=== PATIENT | male | born 1975 | race Caucasian/White ===

== ENCOUNTER 2018-08-18 22:08 | Inpatient (IN) | payer OTHER, SELFPAY ==
--- NOTE | 2018-08-18 23:09 | EDPHYS ---
Physician Documentation [facility] Name: Darrell Tuttle Age: 43 yrs Sex: Male : 1975 Arrival Date: 08/18/2018 Time: 22:12 Bed 5 Private MD: ED Physician Del Rico HPI: 08/18 23:03 This 43 yrs old Male presents to ER via Ambulatory with complaints of Wound michelle Infection. Historical: - Allergies: 22:24 No Known Allergies; bb - Home Meds: 22:24 Bactrim DS 800-160 mg Oral tab [Active]; Vit D [Active]; metoprolol tartrate 25 mg Oral bb tab 1 tab 2 times per day [Active]; simvastatin 80 mg Oral tab daily [Active]; losartan 100 mg oral tab 1 tab once daily [Active]; - PMHx: 22:24 Diabetes - NIDDM; Hypertension; bb - PSHx: 22:24 nephrectomy; bb - Immunization history:: Adult Immunizations up to date. - Social history:: Smoking status: Patient uses tobacco products, smokes one pack cigarettes per day. Patient/guardian denies using alcohol, street drugs. - Ebola Screening: : No symptoms or risks identified at this time. ROS: 23:04 Constitutional: Negative for fever, chills, and weight loss, Eyes: Negative for injury, michelle pain, redness, and discharge, ENT: Negative for injury, pain, and discharge, Neck: Negative for injury, pain, and swelling, Cardiovascular: Negative for chest pain, palpitations, and edema, Respiratory: Negative for shortness of breath, cough, wheezing, and pleuritic chest pain, Abdomen/GI: Negative for abdominal pain, nausea, vomiting, diarrhea, and constipation, Back: Negative for injury and pain, : Negative for injury, bleeding, discharge, and swelling, Neuro: Negative for headache, weakness, numbness, tingling, and seizure, Psych: Negative for depression, anxiety, suicide ideation, homicidal ideation, and hallucinations, Allergy/Immunology: Negative for hives, rash, and allergies, Endocrine: Negative for neck swelling, polydipsia, polyuria, polyphagia, and marked weight changes, Hematologic/Lymphatic: Negative for swollen nodes, abnormal bleeding, and unusual bruising. 23:04 MS/extremity: Positive for pain, swelling, tenderness, warmth, of the right foot and right leg. Exam: 23:04 Constitutional: This is a well developed, well nourished patient who is awake, alert, michelle and in no acute distress. Head/Face: Normocephalic, atraumatic. Eyes: Pupils equal round and reactive to light, extra-ocular motions intact. Lids and lashes normal. Conjunctiva and sclera are non-icteric and not injected. Cornea within normal limits. Periorbital areas with no swelling, redness, or edema. ENT: Nares patent. No nasal discharge, no septal abnormalities noted. Tympanic membranes are normal and external auditory canals are clear. Oropharynx with no redness, swelling, or masses, exudates, or evidence of obstruction, uvula midline. Mucous membranes moist. Neck: Trachea midline, no thyromegaly or masses palpated, and no cervical lymphadenopathy. Supple, full range of motion without nuchal rigidity, or vertebral point tenderness. No Meningismus. Chest/axilla: Normal chest wall appearance and motion. Nontender with no deformity. No lesions are appreciated. Cardiovascular: Regular rate and rhythm with a normal S1 and S2. No gallops, murmurs, or rubs. Normal PMI, no JVD. No pulse deficits. Respiratory: Lungs have equal breath sounds bilaterally, clear to auscultation and percussion. No rales, rhonchi or wheezes noted. No increased work of breathing, no retractions or nasal flaring. Abdomen/GI: Soft, non-tender, with normal bowel sounds. No distension or tympany. No guarding or rebound. No evidence of tenderness throughout. Back: No spinal tenderness. No costovertebral tenderness. Full range of motion. Male : Normal genitalia with no discharge or lesions. Neuro: Awake and alert, GCS 15, oriented to person, place, time, and situation. Cranial nerves II-XII grossly intact. Motor strength 5/5 in all extremities. Sensory grossly intact. Cerebellar exam normal. Normal gait. Psych: Awake, alert, with orientation to person, place and time. Behavior, mood, and affect are within normal limits. 23:04 Skin: abscess, that is small, cellulitis, that is mild, induration, that is mild is noted. Vital Signs: 22:24 BP 167 / 86; Pulse 103; Resp 18 S; Temp 99.1(O); Pulse Ox 99% on R/A; Weight 90.72 kg bb (R); Height 6 ft. 0 in. (182.88 cm) (R); Pain 2/10; 08/19 01:45 BP 162 / 83; Pulse 85; Resp 18; Pulse Ox 98% on R/A; tl2 02:19 BP 133 / 77; Pulse 84; Resp 16; Temp 98.5(O); Pulse Ox 97% on R/A; Pain 0/10; tl1 08/18 22:24 Body Mass Index 27.12 (90.72 kg, 182.88 cm) Procedures: 01:36 I \T\ D: Incision and drainage was performed for an abscess of the right Prepped with [facility] Betadine, Anesthetized with nothing. Incised with sissors. Drained small amount Dressing: non-Adherent dressing, the patient tolerated the procedure well, cultures obtained. MDM: 08/18 22:42 Patient medically screened. [facility] 23:06 Data reviewed: vital signs, nurses notes, lab test result(s), EKG, radiologic studies, [facility] plain films. 08/18 23:03 Order name: Basic Metabolic Panel; Complete Time: 23:53 [facility] 08/18 23:03 Order name: CBC with Diff; Complete Time: 23:53 [facility] 08/18 23:03 Order name: LFT's; Complete Time: 23:53 [facility] 08/18 23:03 Order name: Magnesium; Complete Time: 23:53 [facility] 08/18 23:03 Order name: NT PRO-BNP; Complete Time: 23:53 [facility] 08/18 23:03 Order name: PT-INR; Complete Time: 23:53 [facility] 08/18 23:03 Order name: Troponin (emerg Dept Use Only); Complete Time: 23:53 [facility] 08/18 23:03 Order name: XRAY Chest (1 view) [facility] 08/18 23:03 Order name: Sed Rate; Complete Time: 23:53 [facility] 08/18 23:15 Order name: Blood Culture Adult (2) tl2 08/18 23:19 Order name: Wound Culture [facility] 08/19 01:40 Order name: Lactate EDMS 08/19 02:01 Order name: Wound Culture tl1 08/19 02:05 Order name: Wound Culture [facility] 08/18 23:03 Order name: EKG; Complete Time: 23:03 [facility] 08/18 23:03 Order name: Cardiac monitoring; Complete Time: 23:11 [facility] 08/18 23:03 Order name: EKG - Nurse/Tech; Complete Time: 00:12 [facility] 08/18 23:03 Order name: IV Saline Lock; Complete Time: 23:11 [facility] 08/18 23:03 Order name: Labs collected and sent; Complete Time: 23:24 [facility] 08/18 23:03 Order name: O2 Per Protocol; Complete Time: 23:24 [facility] 08/18 23:03 Order name: Foot Right 3 View XRAY [facility] 08/18 23:14 Order name: CONS Physician Consult [facility] 08/18 23:14 Order name: NPO EDFL 08/18 23:03 Order name: O2 Sat Monitoring; Complete Time: 23:24 [facility] 08/18 23:03 Order name: Wound dressing; Complete Time: 23:23 [facility] 08/18 23:59 Order name: Dressing - Wound; Complete Time: 01:41 [facility] 08/18 23:59 Order name: Gloves, Sterile; Complete Time: 01:41 [facility] 08/18 23:59 Order name: Setup Suture Tray; Complete Time: 01:41 [facility] Administered Medications: 23:23 Drug: NS 0.9% 1000 ml Route: IV; Rate: 1 bolus; Site: right forearm; tl2 23:33 Follow up: IV Status: Completed infusion tl1 23:23 Drug: Zosyn 3.375 grams Route: IVPB; Infused Over: 60 mins; Site: right forearm; tl2 08/19 01:48 Follow up: IV Status: Completed infusion tl1 00:18 Drug: Insulin Regular Human 10 units {Co-Signature: tl2 (Dorita Olea RN).} Route: IVP; tl1 Site: right forearm; 01:41 Follow up: Response: No adverse reaction; Blood sugar is lowered tl2 00:19 Drug: Insulin Regular Human 10 units {Co-Signature: tl2 (Dorita Olea RN).} Route: tl1 Sub-Q; Site: abdomen; 01:41 Follow up: Response: No adverse reaction; Blood sugar is lowered tl2 00:27 Drug: vancoMYCIN 1 grams Route: IVPB; Infused Over: 2 hrs; Site: right antecubital; tl1 01:49 Follow up: IV Status: Infusion continued upon admission tl1 02:31 Follow up: IV Status: Completed infusion tl1 00:27 Drug: NS 0.9% 1000 ml Route: IV; Rate: 125 ml/hr; Site: right forearm; tl2 01:49 Follow up: IV Status: Infusion continued upon admission tl1 01:42 Drug: Silvadene Cream 1 % 1 application Route: Topical; Site: affected area; tl2 Point of Care Testing: Blood Glucose: 01:05 Blood Glucose: 317 mg/dL; tl1 Ranges: Critical Glucose Levels:Adult <50 mg/dl or >400 mg/dl <40 mg/dl or >180 mg/dl Disposition: 08/18/18 23:09 Hospitalization ordered by Jodi Washington for Inpatient Admission. Preliminary diagnosis are Cutaneous abscess of right foot - great toe, Type 1 diabetes mellitus, Lymphangitis - ascending, Anemia, unspecified, Unspecified kidney failure. - Bed requested for Telemetry/MedSurg (Inpatient). - Status is Inpatient Admission. tl2 - Condition is Fair. - Problem is new. - Symptoms have improved. UTI on Admission? No Signatures: Dispatcher [employer] EDDel Oconnell MD MD cha Ballard, Brenda, RN RN Magalie Vallecillo ms, Tonya, RN RN tl1 Dorita Olea RN RN tl2 Dorita Olea RN tl2 Corrections: (The following items were deleted from the chart) 08/18 23:36 23:09 Hospitalization Ordered by oJdi Washington MD for Inpatient Admission. Preliminary ms diagnosis is Cutaneous abscess of right foot - great toe; Type 1 diabetes mellitus; Lymphangitis - ascending. Bed requested for Telemetry/MedSurg (Inpatient). Status is Inpatient Admission. Condition is Fair. Problem is new. Symptoms have improved. UTI on Admission? No. michelle 23:58 23:36 08/18/2018 23:09 Hospitalization Ordered by Jodi Washington MD for Inpatient michelle Admission. Preliminary diagnosis is Cutaneous abscess of right foot - great toe; Type 1 diabetes mellitus; Lymphangitis - ascending. Bed requested for Telemetry/MedSurg (Inpatient). Status is Inpatient Admission. Condition is Fair. Problem is new. Symptoms have improved. UTI on Admission? No. ms 08/19 03:17 08/18 23:58 08/18/2018 23:09 Hospitalization Ordered by Jodi Washington MD for Inpatient tl2 Admission. Preliminary diagnosis is Cutaneous abscess of right foot - great toe; Type 1 diabetes mellitus; Lymphangitis - ascending; Anemia, unspecified; Unspecified kidney failure. Bed requested for Telemetry/MedSurg (Inpatient). Status is Inpatient Admission. Condition is Fair. Problem is new. Symptoms have improved. UTI on Admission? No. michelle
--- NOTE | 2018-08-18 23:09 | ER ---
Nurse's Notes [facility] Name: Darrell Tuttle Age: 43 yrs Sex: Male : 1975 Arrival Date: 08/18/2018 Time: 22:12 Bed 5 Private MD: Diagnosis: Cutaneous abscess of right foot-great toe;Type 1 diabetes mellitus;Lymphangitis-ascending;Anemia, unspecified;Unspecified kidney failure Presentation: 08/18 22:19 Presenting complaint: Patient states: he had a diabetic wound to his right big toe for bb about a month then it heeled but 2 days ago it developed a "blood blister" and now he is having redness to foot and pain up his calf. He was started on Bactrim yesterday, pt had one kidney removed as a child for polycystic kidney. Transition of care: patient was not received from another setting of care. Onset of symptoms was August 16, 2018. Risk Assessment: Do you want to hurt yourself or someone else? Patient reports no desire to harm self or others. Initial Sepsis Screen: Does the patient meet any 2 criteria? No. Patient's initial sepsis screen is negative. Does the patient have a suspected source of infection? No. Patient's initial sepsis screen is negative. Care prior to arrival: None. 22:19 Method Of Arrival: Ambulatory bb 22:19 Acuity: SOFI 3 bb Historical: - Allergies: 22:24 No Known Allergies; bb - Home Meds: 22:24 Bactrim DS 800-160 mg Oral tab [Active]; Vit D [Active]; metoprolol tartrate 25 mg Oral bb tab 1 tab 2 times per day [Active]; simvastatin 80 mg Oral tab daily [Active]; losartan 100 mg oral tab 1 tab once daily [Active]; - PMHx: 22:24 Diabetes - NIDDM; Hypertension; bb - PSHx: 22:24 nephrectomy; bb - Immunization history:: Adult Immunizations up to date. - Social history:: Smoking status: Patient uses tobacco products, smokes one pack cigarettes per day. Patient/guardian denies using alcohol, street drugs. - Ebola Screening: : No symptoms or risks identified at this time. Screenin:02 Abuse screen: Denies threats or abuse. Nutritional screening: No deficits noted. tl2 Tuberculosis screening: No symptoms or risk factors identified. Fall Risk None identified. Assessment: 23:00 General: Appears in no apparent distress. uncomfortable, Behavior is calm, cooperative, tl2 appropriate for age. Pain: Complains of pain in right first toe and Right first toenail Pain does not radiate. Pain currently is 10 out of 10 on a pain scale. Neuro: Level of Consciousness is awake, alert, obeys commands, Oriented to person, place, time, situation. Cardiovascular: Denies chest pain. Respiratory: Airway is patent Respiratory effort is even, unlabored, Respiratory pattern is regular, symmetrical. GI: No signs and/or symptoms were reported involving the gastrointestinal system. Derm: Wound noted right first toe and Right first toenail Wound is red, swollen, foul odor. 08/19 00:00 Reassessment: Patient appears in no apparent distress at this time. Patient and/or tl2 family updated on plan of care and expected duration. Pain level reassessed. Patient is alert, oriented x 3, equal unlabored respirations, skin warm/dry/pink. 01:30 Reassessment: Patient appears in no apparent distress at this time. Patient and/or tl2 family updated on plan of care and expected duration. Pain level reassessed. Patient is alert, oriented x 3, equal unlabored respirations, skin warm/dry/pink. 03:00 Reassessment: Patient appears in no apparent distress at this time. Patient and/or tl2 family updated on plan of care and expected duration. Pain level reassessed. Patient is alert, oriented x 3, equal unlabored respirations, skin warm/dry/pink. Vital Signs: 08/18 22:24 BP 167 / 86; Pulse 103; Resp 18 S; Temp 99.1(O); Pulse Ox 99% on R/A; Weight 90.72 kg bb (R); Height 6 ft. 0 in. (182.88 cm) (R); Pain 2/10; 08/19 01:45 BP 162 / 83; Pulse 85; Resp 18; Pulse Ox 98% on R/A; tl2 02:19 BP 133 / 77; Pulse 84; Resp 16; Temp 98.5(O); Pulse Ox 97% on R/A; Pain 0/10; tl1 08/18 22:24 Body Mass Index 27.12 (90.72 kg, 182.88 cm) ED Course: 08/18 22:12 Patient arrived in ED. do 22:22 Triage completed. bb 22:24 Arm band placed on Patient placed in an exam room, on a stretcher, on pulse oximetry. bb Family accompanied patient. 22:41 Del Rico MD is Attending Physician. michelle 23:01 Inserted saline lock: 20 gauge in right forearm, using aseptic technique. Blood tl2 collected. placed by yahaira De La Garza. 23:02 Patient has correct armband on for positive identification. Bed in low position. Call tl2 light in reach. Side rails up X 1. Adult w/ patient. 23:07 Jodi Washington MD is Hospitalizing Provider. michelle 23:22 X-ray completed. Portable x-ray completed in exam room. Patient tolerated procedure kw well. 23:23 XRAY Chest (1 view) In Process Unspecified. EDMS 23:24 Foot Right 3 View XRAY In Process Unspecified. EDMS 08/19 00:18 Deepika Rodarte RN is Primary Nurse. tl1 01:42 No provider procedures requiring assistance completed. Patient admitted, IV remains in tl1 place. Dressings: Adaptic Kerlix 4X4s X 1; right first toe. Administered Medications: 08/18 23:23 Drug: NS 0.9% 1000 ml Route: IV; Rate: 1 bolus; Site: right forearm; tl2 23:33 Follow up: IV Status: Completed infusion tl1 23:23 Drug: Zosyn 3.375 grams Route: IVPB; Infused Over: 60 mins; Site: right forearm; tl2 08/19 01:48 Follow up: IV Status: Completed infusion tl1 00:18 Drug: Insulin Regular Human 10 units {Co-Signature: tl2 (Dorita Olea RN).} Route: IVP; tl1 Site: right forearm; 01:41 Follow up: Response: No adverse reaction; Blood sugar is lowered tl2 00:19 Drug: Insulin Regular Human 10 units {Co-Signature: tl2 (Dorita Olea RN).} Route: tl1 Sub-Q; Site: abdomen; 01:41 Follow up: Response: No adverse reaction; Blood sugar is lowered tl2 00:27 Drug: vancoMYCIN 1 grams Route: IVPB; Infused Over: 2 hrs; Site: right antecubital; tl1 01:49 Follow up: IV Status: Infusion continued upon admission tl1 02:31 Follow up: IV Status: Completed infusion tl1 00:27 Drug: NS 0.9% 1000 ml Route: IV; Rate: 125 ml/hr; Site: right forearm; tl2 01:49 Follow up: IV Status: Infusion continued upon admission tl1 01:42 Drug: Silvadene Cream 1 % 1 application Route: Topical; Site: affected area; tl2 Point of Care Testing: Blood Glucose: 01:05 Blood Glucose: 317 mg/dL; tl1 Ranges: Outcome: 08/18 23:09 Decision to Hospitalize by Provider. michelle 08/19 03:00 Admitted to Med/surg family with patient, via stretcher, room 224, with chart, Report tl2 called to BREANA Lima Condition: stable Discharge instructions given to patient, family, Instructed on the need for admit. 03:17 Patient left the ED. tl2 Signatures: Dispatcher [employer] EDDel Oconnell MD MD cha Ballard, Brenda, RN RN Sabine Dorantes Tonya, RN RN tl1 Nona Valderrama Taylor, RN RN tl2 Dorita Olea RN tl2 Corrections: (The following items were deleted from the chart) 08/18 23:16 23:01 Inserted saline lock: 22 gauge in right forearm, using aseptic technique. Blood tl2 collected. placed by yahaira De La Garza tl2 08/19 01:48 08/18 23:03 vancoMYCIN 1 grams IVPB in right antecubital over 2 hrs tl1 tl1
[2018-08-18] MEDS ORDERED: NA CHLORIDE 0.9% 1,000 ML ONE (23:20)
[2018-08-18] MEDS ORDERED: VANCOMYCIN 1 GM/250 ML BAG ONE (23:20)
[2018-08-18] MEDS ORDERED: PIPER/TAZO/NS 3.375gm 3.375 GM/100 ML BAG ONE (23:21)
[2018-08-18 23:22] LABS: Absolute Lymphocytes (CBC) 2.1 K/uL (0.7-4.9); Absolute Monocytes 0.7 K/uL (0.1-1.3); Absolute Neutrophil 10.1 K/uL (1.8-8.0); Basophils % 0.9 % (0-1.3); Eosinophils % 4.1 % (0-4.4); Hematocrit 33.6 % (39.6-49.0); Lymphocytes % 15.4 % (15.3-44.8); MCH 33.7 pg (27.0-35.0); MCV 91.4 fL (80-100); MPV 8.4 fL (7.6-11.3); Monocytes % 5.3 % (3.3-12.3); RBC Red Blood Cell Count 3.67 M/uL (4.33-5.43)
[2018-08-18 23:31] LABS: Protime INR 1.11
[2018-08-18 23:49] LABS: ALT/SGPT 17 U/L (12-78); AST/SGOT 15 U/L (15-37); Albumin 3.1 g/dL (3.4-5.0); Alkaline Phosphatase 110 U/L (45-117); BUN Blood Urea Nitrogen 37 mg/dL (7-18); Bicarbonate 22 mmol/L (21-32); Bilirubin Direct 0.2 mg/dL (0-0.2); Bilirubin Total 0.9 mg/dL (0.2-1.0); Magnesium 1.9 mg/dL (1.8-2.4); NT PRO-BNP 307 pg/mL (<125); Potassium 4.2 mmol/L (3.5-5.1); Protein, Total 7.5 g/dL (6.4-8.2); Sodium Level 132 mmol/L (136-145); Troponin (Emerg Dept Use Only) < 0.02 ng/mL (0.0-0.045)
[2018-08-18 23:50] LABS: Glucose Level 460 mg/dL (74-106)
--- NOTE | 2018-08-19 00:21 | P.HP ---
Certification for Inpatient Patient admitted to: Inpatient With expected LOS: >2 Midnights Practitioner: I am a practitioner with admitting privileges, knowledge of patient current condition, hospital course, and medical plan of care. Services: Services provided to patient in accordance with Admission requirements found in Title 42 Section 412.3 of the Code of Federal Regulations Patient History Date of Service: 08/19/18 Reason for admission: Diabetic wound History of Present Illness: Mr Tuttle is a 43-year-old male with history of insulin-dependent diabetic mellitus, hypertension, unilateral nephrectomy due to polycystic disease, with chronic diabetic wound in his right toe currently healed came complaining of increasing swelling, pain, redness and bloody blister in the anterior aspect of his 1st right toe. He denied any fever or chills. The patient states that the wound has been getting worse pretty fast. Lab work remarkable for leukocytosis 13.6 K, elevated ESR, worsening renal function and hyperglycemia. Lactate level is pending. X-ray of right foot done, awaiting radiology report. Allergies No Known Allergies Allergy (Verified 01/19/18 15:03) Home medications list reviewed: Yes - Past Medical/Surgical History -: IDDM -: Hypertension -: Tobacco abuse -: Nephrectomy - Family History Family History: Reviewed- Non-Contributory - Social History Smoking Status: Current every day smoker Counseled patient to stop smoking for: less than 10 minutes Smoking therapy provided: Yes Patient receptive to therapy: No Alcohol use: Yes CD- Drugs: No Place of Residence: Home Review of Systems 10-point ROS is otherwise unremarkable Physical Examination - Physical Exam General: Alert, In no apparent distress HEENT: Atraumatic, PERRLA, Mucous membr. moist/pink, EOMI, Sclerae nonicteric Neck: Supple, 2+ carotid pulse no bruit, No LAD, Without JVD or thyroid abnormality Respiratory: Clear to auscultation bilaterally, Normal air movement Cardiovascular: Regular rate/rhythm, Normal S1 S2 Gastrointestinal: Normal bowel sounds, No tenderness Musculoskeletal: No tenderness Integumentary: No rashes, Tenderness/swelling, Erythema, Warmth, Diabetic ulcer Neurological: Normal speech, Normal strength at 5/5 x4 extr, Normal tone, Normal affect Lymphatics: No axilla or inguinal lymphadenopathy - Studies Laboratory Data (last 24 hrs) 08/18/18 22:39: PT 13.1 H, INR 1.11 08/18/18 22:39: WBC 13.6 H, Hgb 12.4 L, Hct 33.6 L, Plt Count 224 08/18/18 22:39: Sodium 132 L, Potassium 4.2, BUN 37 H, Creatinine 2.80 H, Glucose 460 H*, Magnesium 1.9, Total Bilirubin 0.9, AST 15, ALT 17, Alkaline Phosphatase 110 Assessment and Plan - Problems (Diagnosis) (1) Diabetes mellitus Current Visit: Yes Status: Acute Qualifiers: Diabetes mellitus type: type 2 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: with termite treater helper use Diabetes mellitus complication status: with skin complications Diabetes mellitus complication detail: with foot ulcer Qualified Code(s): E11.621 - Type 2 diabetes mellitus with foot ulcer; L97.509 - Non-pressure chronic ulcer of other part of unspecified foot with unspecified severity; Z79.4 - penitentiary (current) use of insulin (2) Diabetic wound Current Visit: Yes Status: Acute (3) Hypertension Current Visit: Yes Status: Acute Qualifiers: Hypertension type: essential hypertension Qualified Code(s): I10 - Essential (primary) hypertension (4) Tobacco abuse Current Visit: Yes Status: Acute (5) Acute on chronic renal failure Current Visit: Yes Status: Acute Qualifiers: Acute renal failure type: unspecified Chronic kidney disease stage: unspecified stage Qualified Code(s): N17.9 - Acute kidney failure, unspecified ; N18.9 - Chronic kidney disease, unspecified - Plan The patient will be admitted to the hospital due to a diabetic ulcer, will start empiric antibiotics, was keep NPO consult surgery team for evaluation recommendation. - Advance Directives Does patient have a Living Will: No Does patient have a Durable POA for Healthcare: No - Code Status/Comfort Care Code Status Assessed: Yes Code Status: Full Code
[2018-08-19] MEDS ORDERED: INSULIN -REGULAR HUMAN 50 UNIT/0.5 ML ML ONE (00:22)
[2018-08-19] MEDS ORDERED: SILVER SULFADIAZINE 1% 25 GM TOP ONE (00:23)
[2018-08-19] MEDS ORDERED: NA CHLORIDE 0.9% 1,000 ML ONE (00:29)
[2018-08-19] MEDS ORDERED: ONDANSETRON 4 MG/2 ML VIAL IV PRN (02:04)
[2018-08-19] MEDS: NA CHLORIDE 0.9% 1,000 ML IV SCH ×4 (02:04→14:00)
[2018-08-19] MEDS ORDERED: ACETAMINOPHEN 500 MG TAB PO PRN (02:04)
[2018-08-19] MEDS ORDERED: VANCOMYCIN 1.75 GM in NA CHLORIDE 0.9% 500 ML IVPB SCH (03:00)
[2018-08-19] MEDS ORDERED: PIPERACIL/TAZO 3.375 GM VIAL IV ONE (05:32)
[2018-08-19] MEDS ORDERED: NA CHLORIDE 0.9% 100 ML ONE (05:35)
[2018-08-19] MEDS: INSULIN -REGULAR HUMAN 50 UNIT/0.5 ML ML SQ SCH ×4 (05:56→21:04)
[2018-08-19] MEDS ORDERED: VANCOMYCIN 0.75 GM in NA CHLORIDE 0.9% 250 ML IV ONE (06:00)
[2018-08-19] MEDS ORDERED: PIPER/TAZO/NS 3.375gm 3.375 GM/100 ML BAG IVPB SCH (06:00)
[2018-08-19 06:20] LABS: Absolute Lymphocytes (CBC) 2.5 K/uL (0.7-4.9); Absolute Monocytes 0.8 K/uL (0.1-1.3); Absolute Neutrophil 7.5 K/uL (1.8-8.0); Basophils % 0.5 % (0-1.3); Eosinophils % 5.4 % (0-4.4); Hematocrit 30.4 % (39.6-49.0); Lymphocytes % 21.8 % (15.3-44.8); MCH 31.7 pg (27.0-35.0); MCV 89.6 fL (80-100); Monocytes % 6.9 % (3.3-12.3); RBC Red Blood Cell Count 3.39 M/uL (4.33-5.43)
[2018-08-19 06:30] LABS: Potassium 4.2 mmol/L (3.5-5.1)
[2018-08-19] MEDS ORDERED: VANCOMYCIN 1 GM/250 ML BAG ONE (06:34)
[2018-08-19] MEDS ORDERED: HYDRALAZINE HCL 20 MG/ML VIAL IV PRN (06:37)
[2018-08-19 07:21] LABS: Ferritin 358.9 ng/mL (26-388)
[2018-08-19] MEDS ORDERED: INFLUENZA VACCINE (for 3y+) 0.5 ML DOSE IMVAC ONE (08:00)
--- NOTE | 2018-08-19 08:16 | RAD REPORT ---
EXAM DESCRIPTION: Gaetano Single View08/18/2018 11:27 pm CLINICAL HISTORY: Cough COMPARISON: none FINDINGS: The lungs appear clear of acute infiltrate. The heart is normal size IMPRESSION: No acute abnormalities displayed
--- NOTE | 2018-08-19 08:24 | RAD REPORT ---
EXAM DESCRIPTION: RAD - Foot Right 3 View - 08/18/2018 11:26 pm CLINICAL HISTORY: Right foot pain and swelling FINDINGS: Ulceration involves the soft tissues of first distal phalanx. Air within the soft tissues likely indicate infection. Destructive bony lesion is not seen. No fracture or dislocation is noted
[2018-08-19] MEDS: PIPER/TAZO/NS 3.375gm 3.375 GM/100 ML BAG IVPB SCH ×2 (09:39→17:30)
--- NOTE | 2018-08-19 13:55 | P.CNS ---
Date of Consult: 08/19/18 PC: This patient presents emergency room with severe pain in his right toe for diagnosis and treatment. HPC: Patient was at work. When he got home he noticed his right toe was swollen. On the bottom part there was a area of blistering ran it color change. Also has some redness on the dorsum of the foot. PMH: Previous episode of abscess in this right great toe. He had an open wound to this area which gradually close. 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 This wound, has come up the the last few days. History diabetes, polycystic kidney disease PSHx: Previous incision drainage SOC: No known allergy SYS REVIEW: Says he is otherwise healthy male. No cough, wheeze, shortness of breath. Denies any chest pain or palpitations. However has no sensation in his feet from about mid calf down O/E awake alert stable HEENT: Within normal limit Chest: Chest movement equal bilaterally ABD: Soft LOCO: On inspection of this patient's right great toe when concede that the medial aspect on the plantar surface shows a black area. This is also over an area of possible hematoma. Medially and the skin is intact from the wound. DATA: Within normal an IMPRESSION: Necrotic area on the right great toe. Open and draining at the moment. PLAN: The patient is an antibiotics, he had apparently lymphangitis when seen by the physician's left side on the dorsum of the foot. This is no longer there. I will continue with the antibiotics observe this foot over the next 12: 48 p.m.. We may be able to avoid an aggressive debridement. Will see how it progresses over the next few days.
--- NOTE | 2018-08-19 16:48 | P.PN ---
Subjective Date of Service: 08/19/18 Primary Care Provider: Keyur Bonilla NP Chief Complaint: Diabetic wound Subjective: Doing well Physical Examination - Vital Signs Temperature: 97.4 F Blood Pressure: 120/65 Pulse: 72 Respirations: 17 Pulse Ox (%): 97 - Physical Exam General: Alert, In no apparent distress, Oriented x3, Cooperative HEENT: Atraumatic Neck: Supple Respiratory: Clear to auscultation bilaterally, Normal air movement Cardiovascular: Normal pulses, Regular rate/rhythm Gastrointestinal: Normal bowel sounds, Soft and benign, Non-distended, No tenderness, No masses, No rebound, No guarding Musculoskeletal: No erythema, No tenderness, No warmth Integumentary: Other (Necrotic ulcer to the right toe. Foul odor noted. Swelling to the right foot compared to the left) Neurological: Normal speech, Normal strength at 5/5 x4 extr, Normal tone, Normal affect - Studies Laboratory Data (last 24 hrs) 08/18/18 22:39: PT 13.1 H, INR 1.11 08/18/18 22:39: WBC 13.6 H, Hgb 12.4 L, Hct 33.6 L, Plt Count 224 08/18/18 22:39: Sodium 132 L, Potassium 4.2, BUN 37 H, Creatinine 2.80 H, Glucose 460 H*, Magnesium 1.9, Total Bilirubin 0.9, AST 15, ALT 17, Alkaline Phosphatase 110 Medications List Reviewed: Yes Assessment & Plan Discharge Plan: Home Plan to discharge in: Greater than 2 days Physician Review Additional Text: Impression: Diabetic foot ulcer with necrotic changes with cellulitis Diabetes mellitus type 2 uncontrolled Acute on chronic renal disease with history of right nephrectomy due to polycystic kidney disease Hypertension Anemia with iron and B12 deficiency Tobacco abuse GERD Hyperlipidemia Plan: Diabetic foot ulcer with necrotic changes with cellulitis: Continue with IV antibiotic therapy. X-ray shows no osteomyelitis. Case discussed with surgery. Will continue with IV antibiotic therapy-vancomycin and Zosyn. Pharmacy to adjust. No need for debridement at this time. Patient may require debridement. Will continue to monitor closely. Diabetes mellitus type 2 uncontrolled: Will start basal insulin. A1c 9.1. Will try to get diabetes better controlled. Acute on chronic renal disease with history of right nephrectomy due to polycystic kidney disease: Will start IV fluids. Will consult Nephrology to further monitor and address. Hypertension: Will continue with blood pressure medication. We will hold losartan due to acute on chronic renal disease. Will continue with metoprolol. Anemia with iron and B12 deficiency: Will start iron and B12 supplementation. Will monitor closely. Tobacco abuse: Will provide nicotine patch. Cessation education addressed. Hyperlipidemia: Will continue with medication. GERD: Will continue with medication Time Spent Managing Pts Care (In Minutes): 55
[2018-08-19] MEDS ORDERED: GLUCAGON 1 MG/VIAL IM PRN (16:49)
[2018-08-19] MEDS ORDERED: TRAMADOL HCL 50 MG TAB PO PRN (16:49)
[2018-08-19] MEDS ORDERED: D50W 25 GM/50 ML SYRINGE IV PRN (16:49)
[2018-08-19] MEDS ORDERED: HYDROCODONE/APAP 7.5/325 MG TAB PO PRN (16:49)
[2018-08-19] MEDS: ENOXAPARIN 30 MG/0.3 ML SQ SCH (17:30)
[2018-08-19] MEDS ORDERED: HOME MED 1 EA UNK (Simvastatin [Simvastatin] 80 MG) PO SCH (21:00)
[2018-08-19] MEDS ORDERED: INSULIN GLARGINE 100 UNITS/ML SQ SCH (21:00)
[2018-08-19] MEDS: ATORVASTATIN 40 MG TAB PO SCH (21:03)
[2018-08-19] MEDS: METOPROLOL TAR 25 MG TAB PO SCH (21:03)
[2018-08-20] MEDS: PIPER/TAZO/NS 3.375gm 3.375 GM/100 ML BAG IVPB SCH ×3 (00:12→16:53)
[2018-08-20] MEDS: NA CHLORIDE 0.9% 1,000 ML IV SCH (02:35)
[2018-08-20 04:42] LABS: Absolute Lymphocytes (CBC) 2.3 K/uL (0.7-4.9); Absolute Monocytes 0.7 K/uL (0.1-1.3); Absolute Neutrophil 6.6 K/uL (1.8-8.0); Basophils % 0.5 % (0-1.3); Eosinophils % 6.2 % (0-4.4); Hematocrit 30.5 % (39.6-49.0); Lymphocytes % 22.6 % (15.3-44.8); MCH 32.1 pg (27.0-35.0); MCV 90.4 fL (80-100); MPV 7.6 fL (7.6-11.3); Monocytes % 6.5 % (3.3-12.3); RBC Red Blood Cell Count 3.37 M/uL (4.33-5.43)
[2018-08-20 04:59] LABS: Magnesium 2.2 mg/dL (1.8-2.4); Potassium 4.6 mmol/L (3.5-5.1)
[2018-08-20] MEDS: VANCOMYCIN 1.75 GM in NA CHLORIDE 0.9% 500 ML IVPB SCH (05:24)
[2018-08-20] MEDS: PANTOPRAZOLE 40MG TABLET PO SCH (05:39)
--- NOTE | 2018-08-20 07:54 | EKG ---
Test Date: 2018-08-18 Test Time: 23:46:27 Deck Hand: ADONAY MEASUREMENT RESULTS: Intervals: Rate: 89 MA: 174 QRSD: 94 QT: 354 QTc: 430 [place]: P: 62 MA: 174 QRS: 12 T: 57 INTERPRETIVE STATEMENTS: Normal sinus rhythm Normal ECG No previous ECG available for comparison Electronically Signed On 08-20-18 07:49:13 CDT by Filpie Childers
[2018-08-20] MEDS: INSULIN -REGULAR HUMAN 50 UNIT/0.5 ML ML SQ SCH ×4 (08:36→20:55)
[2018-08-20] MEDS: METOPROLOL TAR 25 MG TAB PO SCH ×2 (08:37→20:53)
[2018-08-20] MEDS: CYANOCOBALAMIN 1,000 MCG TAB PO SCH (08:38)
[2018-08-20] MEDS: FERROUS SULFATE 325 MG TAB PO SCH (08:38)
--- NOTE | 2018-08-20 09:37 | P.CNS ---
Date of Consult: 08/19/18 Reason for Consult: SELAM/ CKD Requesting Physician: Alejandro Moe Primary Care Provider: Keyur Bonilla NP Chief Complaint: Diabetic wound History of Present Illness: 43 yo WM CKD, DM presented to the ER with several days of moderate, progressive right great toe pain and swelling with associated malaise in the setting of PAD. No modifying fx. No NSAIDs. No bladder difficulties. Mr Tuttle is a 43-year-old male with history of insulin-dependent diabetic mellitus, hypertension, unilateral nephrectomy due to polycystic disease, with chronic diabetic wound in his right toe currently healed came complaining of increasing swelling, pain, redness and bloody blister in the anterior aspect of his 1st right toe. He denied any fever or chills. The patient states that the wound has been getting worse pretty fast. Lab work remarkable for leukocytosis 13.6 K, elevated ESR, worsening renal function and hyperglycemia. Lactate level is pending. X-ray of right foot done, awaiting radiology report. Allergies No Known Allergies Allergy (Verified 01/19/18 15:03) Home medications list reviewed: Yes Home Medications: Losartan Potassium 25 mg PO DAILY 08/19/18 Metoprolol Tartrate 25 mg PO BID 08/19/18 Simvastatin 80 mg PO BEDTIME 08/19/18 - Past Medical/Surgical History Diabetic: Yes -: IDDM -: Hypertension -: Tobacco abuse -: Nephrectomy - Family History Father History Unknown: Yes - Social History Smoking Status: Current every day smoker Alcohol use: No CD- Drugs: No Caffeine use: No Place of Residence: Home Review of Systems 10-point ROS is otherwise unremarkable General: Weakness, Malaise Gastrointestinal: Constipation Musculoskeletal: Foot Pain Physical Examination Temp Pulse Resp BP Pulse Ox 98 F 77 18 131/70 98 08/20/18 07:47 08/20/18 08:37 08/20/18 07:47 08/20/18 08:37 08/20/18 07:47 General: Alert, Oriented x3, Cooperative HEENT: Atraumatic Neck: Supple Respiratory: Clear to auscultation bilaterally Cardiovascular: No edema, Regular rate/rhythm Gastrointestinal: Hypoactive, Soft and benign Musculoskeletal: No clubbing, No contractures Integumentary: No rashes, No cyanosis, Skin breakdown, Tenderness/swelling, Erythema Neurological: Normal speech Creatinine 2.8 at admission. Blood work reviewed in the chart. Imagings Data: EXAM DESCRIPTION: Gaetano Single View08/18/2018 11:27 pm CLINICAL HISTORY: Cough COMPARISON: none FINDINGS: The lungs appear clear of acute infiltrate. The heart is normal size IMPRESSION: No acute abnormalities displayed Conclusions/Impression: A/ SELAM likely due to hypovolemia. CKD IV with proteinuria. Right nephrectomy. Hyponatremia. DM II with CKD. HTN with CKD. Iron Deficiency Anemia. Hypocalcemia. P/ Continue current POC and medications. Agree with IVF. Agree with abx. Follow up with surgery for wound care. No NSAIDs. AM labs. Daily weight. Thank you kindly for the consultation.
--- NOTE | 2018-08-20 09:43 | P.PN ---
Subjective Date of Service: 08/20/18 Primary Care Provider: Keyur Bonilla NP Chief Complaint: Diabetic wound Subjective: Improving (Patient feels better. Pain to the right foot improved. Swelling and erythema noted but improved) Physical Examination - Vital Signs Temperature: 98 F Blood Pressure: 131/70 Pulse: 77 Respirations: 18 Pulse Ox (%): 98 - Physical Exam General: Alert, In no apparent distress, Oriented x3, Cooperative HEENT: Atraumatic Neck: Supple Respiratory: Clear to auscultation bilaterally, Normal air movement Cardiovascular: Normal pulses, Regular rate/rhythm Gastrointestinal: Normal bowel sounds, Soft and benign, Non-distended, No tenderness, No masses, No rebound, No guarding Integumentary: Other (Swelling, erythema noted to the right great toe and foot improved. Mainly localized to the right great toe. Necrotic ulcer noted. Foul odor improved.) Neurological: Normal speech, Normal strength at 5/5 x4 extr, Normal tone, Normal affect - Studies Medications List Reviewed: Yes Assessment & Plan Discharge Plan: Home Plan to discharge in: Greater than 2 days Physician Review Additional Text: Impression: Diabetic foot ulcer with necrotic changes with cellulitis to the right great toe and foot Diabetes mellitus type 2 uncontrolled, A1c 9.0 Acute on chronic renal disease with history of right nephrectomy due to polycystic kidney disease Hypertension Anemia with iron and B12 deficiency Tobacco abuse GERD Hyperlipidemia Plan: Diabetic foot ulcer with necrotic changes with cellulitis to the right great toe and foot: Continue with IV antibiotic therapy-vancomycin and Zosyn. Pharmacy to continue to adjust. X-ray shows no osteomyelitis. Overall improved. Case discussed with surgery. No debridement needed at this time. Patient may require debridement in the next couple of days. Will continue to monitor closely with surgery. Await wound and blood cultures. Will consider MRI of foot if no significant change. Diabetes mellitus type 2 uncontrolled: Will increase Lantus to 15 units daily. Will continue to monitor and adjust. A1c 9.0. Acute on chronic renal disease with history of right nephrectomy due to polycystic kidney disease: Continue with IV fluids. Nephrology consulted to further assess. Hypertension: Will continue with blood pressure medication-metoprolol. Losartan currently on hold due to renal disease. Anemia with iron and B12 deficiency: Will continue with iron and B12 supplementation. Will monitor closely. Tobacco abuse: Will provide nicotine patch. Cessation education addressed. Hyperlipidemia: Will continue with medication. GERD: Will continue with medication Time Spent Managing Pts Care (In Minutes): 55
[2018-08-20] MEDS ORDERED: GABAPENTIN 100 MG CAP PO PRN (09:44)
--- NOTE | 2018-08-20 09:45 | P.PN ---
Date of Service: 08/20/18 Vital Signs Temp Pulse Resp BP Pulse Ox 98 F 77 18 131/70 98 08/20/18 09:43 08/20/18 09:43 08/20/18 09:43 08/20/18 09:43 08/20/18 09:43 Medications Acetaminophen (Tylenol -Extra Strength) 500 mg PO Q4HP PRN PRN Reason: [id number] Stop: 09/18/18 02:05 Hydrocodone Bitart/Acetaminophen ([place] 7.5/325 Mg) 1 tab PO Q6H PRN PRN Reason: PAIN MODERATE TO SEVERE Stop: 09/18/18 16:50 Atorvastatin Calcium (Lipitor) 40 mg PO BEDTIME [place] Stop: 09/18/18 21:01 Last Admin: 08/19/18 21:03 Dose: 40 mg Cyanocobalamin (Vitamin B-12) 1,000 mcg PO DAILY [place] Stop: 09/19/18 09:01 Last Admin: 08/20/18 08:38 Dose: 1,000 mcg Dextrose (Dextrose 50% Syringe) 12.5 gm IV PRN PRN; Protocol PRN Reason: HYPOGLYCEMIA Stop: 09/18/18 16:50 Enoxaparin Sodium (Lovenox 30 Mg Inj) 30 mg SQ DAILY 5 PM [place] Stop: 09/18/18 17:01 Last Admin: 08/19/18 17:30 Dose: 30 mg Ferrous Sulfate (Feosol) 325 mg PO DAILY [place] Stop: 09/19/18 09:01 Last Admin: 08/20/18 08:38 Dose: 325 mg Glucagon (Glucagen) 1 mg IM 1X PRN; Protocol PRN Reason: HYPOGLYCEMIA Stop: 09/18/18 16:50 Hydralazine HCl (Apresoline) 10 mg IV Q6HP PRN PRN Reason: HIGH BP Stop: 09/18/18 06:38 Vancomycin HCl 1.75 gm/ Sodium (Chloride) 500 mls @ 250 mls/hr IVPB Q24H [place]; Protocol Stop: 09/19/18 06:01 Last Admin: 08/20/18 05:24 Dose: 500 mls Piperacillin Sod/Tazobactam Sod (Zosyn 3.375 Gm/100 Ml Ns Ivpb) 3.375 gm in 100 mls @ 25 mls/hr IVPB Q8HR [place]; Protocol Stop: 09/18/18 09:01 Last Admin: 08/20/18 08:37 Dose: 100 mls Sodium Chloride (Sodium Chloride 0.45%) 1,000 mls @ 75 mls/hr IV .[id number] [facility] Stop: 08/21/18 12:39 Insulin Glargine (Lantus) 15 units SQ BEDTIME [place] Stop: 09/19/18 21:01 Insulin Human Regular (Novolin -R) 0 unit SQ ACHS [facility]; Protocol Stop: 09/18/18 16:31 Last Admin: 08/20/18 08:36 Dose: 2 unit Metoprolol Tartrate (Lopressor) 25 mg PO BID [facility] Stop: 09/18/18 21:01 Last Admin: 08/20/18 08:37 Dose: 25 mg Ondansetron HCl (Zofran) 4 mg IV Q6HP PRN PRN Reason: NAUSEA / VOMITING Stop: 09/18/18 02:05 Pantoprazole Sodium (Protonix Tab) 40 mg PO DAILYAC [facility] Stop: 09/19/18 06:31 Last Admin: 08/20/18 05:39 Dose: 40 mg Sodium Chloride (Normal Saline Flush) 10 ml IV BID [facility] Stop: 09/18/18 09:01 Last Admin: 08/20/18 08:38 Dose: Not Given Tramadol HCl (Ultram) 50 mg PO TID PRN PRN Reason: PAIN MILD Stop: 09/18/18 16:50 Microbiology Results 08/18/18 22:39 Blood - Blood Aerobic Blood Culture - Preliminary No growth in 24 hours. 08/18/18 22:39 Blood - Blood Anaerobic Blood Culture - Preliminary No growth in 24 hours. 08/18/18 23:05 Blood - Blood Aerobic Blood Culture - Preliminary No growth in 24 hours. 08/18/18 23:05 Blood - Blood Anaerobic Blood Culture - Preliminary No growth in 24 hours. Assessment/ Plan: Nephrology. Feeling better today. CPS stable without CP or SOB. No acute events overnight. Feeling like a BM is coming. Vitals, medications, blood work and imaging reviewed in the chart. General: Alert, Oriented x3, Cooperative HEENT: Atraumatic Neck: Supple Respiratory: Clear to auscultation bilaterally Cardiovascular: No edema, Regular rate/rhythm Gastrointestinal: Hypoactive, Soft and benign Musculoskeletal: No clubbing, No contractures Integumentary: No rashes, No cyanosis, Skin breakdown, Tenderness/swelling, Erythema Neurological: Normal speech Creatinine 2.8 at admission. Blood work reviewed in the chart. Imagings Data: EXAM DESCRIPTION: Gaetano Single View08/18/2018 11:27 pm CLINICAL HISTORY: Cough COMPARISON: none FINDINGS: The lungs appear clear of acute infiltrate. The heart is normal size IMPRESSION: No acute abnormalities displayed Conclusions/Impression: A/ SELAM likely due to hypovolemia. CKD IV with proteinuria. Right nephrectomy. Hyponatremia. DM II with CKD. HTN with CKD. Iron Deficiency Anemia. B12 Deficiency. Hypocalcemia. P/ Continue current POC and medications. Agree with IVF. Agree with abx. Follow up with surgery for wound care. No NSAIDs. AM labs. Daily weight.
[2018-08-20] MEDS: NACHLORIDE 0.45% 1,000 ML IV SCH ×2 (10:00→23:18)
[2018-08-20 11:20] LABS: Urine Appearance CLEAR; Urine Bilirubin NEGATIVE (NEG); Urine Blood 2+ (NEG); Urine Color YELLOW; Urine Glucose 3+ (NEG); Urine Protein 2+ (NEG); Urine pH 5.5 (5.0-7.0)
[2018-08-20 11:37] LABS: Urine Bacteria <20 /HPF (NONE SEEN); Urine Culture Reflex Order NOT NEEDED
[2018-08-20 12:59] LABS: UR CREAT 95.7 mg/dL (20-370); UR MICROALBUMIN 45.9 mg/dL (< 1.9)
[2018-08-20] MEDS: ENOXAPARIN 30 MG/0.3 ML SQ SCH (16:54)
[2018-08-20] MEDS: ATORVASTATIN 40 MG TAB PO SCH (20:54)
[2018-08-20] MEDS ORDERED: INSULIN GLARGINE 100 UNITS/ML SQ SCH (21:00)
[2018-08-21] MEDS: PIPER/TAZO/NS 3.375gm 3.375 GM/100 ML BAG IVPB SCH ×3 (00:11→17:19)
[2018-08-21 04:37] LABS: Absolute Lymphocytes (CBC) 2.3 K/uL (0.7-4.9); Absolute Monocytes 0.7 K/uL (0.1-1.3); Absolute Neutrophil 5.6 K/uL (1.8-8.0); Basophils % 0.6 % (0-1.3); Eosinophils % 6.9 % (0-4.4); Hematocrit 27.6 % (39.6-49.0); Lymphocytes % 24.8 % (15.3-44.8); MCH 32.6 pg (27.0-35.0); MCV 90.1 fL (80-100); MPV 7.7 fL (7.6-11.3); Monocytes % 7.3 % (3.3-12.3); RBC Red Blood Cell Count 3.06 M/uL (4.33-5.43)
[2018-08-21 05:00] LABS: Magnesium 2.1 mg/dL (1.8-2.4); Potassium 4.3 mmol/L (3.5-5.1); Uric Acid 5.2 mg/dL (3.5-7.2)
[2018-08-21] MEDS: VANCOMYCIN 1.75 GM in NA CHLORIDE 0.9% 500 ML IVPB SCH (06:17)
[2018-08-21] MEDS: PANTOPRAZOLE 40MG TABLET PO SCH (06:30)
[2018-08-21] MEDS: INSULIN -REGULAR HUMAN 50 UNIT/0.5 ML ML SQ SCH ×4 (07:30→20:46)
--- NOTE | 2018-08-21 08:30 | P.PN ---
Subjective Date of Service: 08/21/18 Primary Care Provider: Keyur Bonilla NP Chief Complaint: Diabetic wound Subjective: Doing well Physical Examination - Vital Signs Temperature: 98.5 F Blood Pressure: 119/63 Pulse: 66 Respirations: 18 Pulse Ox (%): 97 - Physical Exam General: Alert, In no apparent distress, Oriented x3, Cooperative HEENT: Atraumatic Neck: Supple Respiratory: Clear to auscultation bilaterally, Normal air movement Cardiovascular: Normal pulses, Regular rate/rhythm Gastrointestinal: Normal bowel sounds, Soft and benign, Non-distended, No tenderness, No masses, No rebound, No guarding Musculoskeletal: No contractures Integumentary: Tenderness/swelling (Swelling, erythema to the right great toe improved. Necrotic area to the ulcer stable. Less foul odor.) Neurological: Normal speech, Normal strength at 5/5 x4 extr, Normal tone, Normal affect - Studies Medications List Reviewed: Yes Assessment & Plan Discharge Plan: Home Plan to discharge in: 48 Hours Physician Review Additional Text: Impression: Diabetic foot ulcer with necrotic changes with cellulitis to the right great toe and foot Diabetes mellitus type 2 uncontrolled, A1c 9.0 Acute on chronic renal disease with history of right nephrectomy due to polycystic kidney disease Hypertension Anemia with iron and B12 deficiency Tobacco abuse GERD Hyperlipidemia Plan: Diabetic foot ulcer with necrotic changes with cellulitis to the right great toe and foot: Continue with IV antibiotic therapy-vancomycin and Zosyn. Pharmacy to continue to adjust. X-ray shows no osteomyelitis. Will check MRI of foot to rule out osteomyelitis. Will discuss further with surgery as the patient may require debridement prior to discharge. If MRI shows osteomyelitis patient will require PICC line and IV antibiotic therapy. Await findings. Will have wound care consulted to continue to address ulcer. So far blood and wound cultures negative. Diabetes mellitus type 2 uncontrolled: Will continue to increase Lantus for better diabetic control. Lantus up to 17 units daily. Will continue to monitor and adjust. A1c 9.0. Acute on chronic renal disease with history of right nephrectomy due to polycystic kidney disease: Continue with IV fluids. This has improved. Continue with nephrology. Hypertension: Will continue with blood pressure medication-metoprolol. Losartan currently on hold due to renal disease. Anemia with iron and B12 deficiency: Will continue with iron and B12 supplementation. Will monitor closely. Tobacco abuse: Will provide nicotine patch. Cessation education addressed. Hyperlipidemia: Will continue with medication. GERD: Will continue with medication Time Spent Managing Pts Care (In Minutes): 55
[2018-08-21] MEDS: FERROUS SULFATE 325 MG TAB PO SCH (08:50)
[2018-08-21] MEDS: METOPROLOL TAR 25 MG TAB PO SCH ×2 (08:50→20:42)
[2018-08-21] MEDS: CYANOCOBALAMIN 1,000 MCG TAB PO SCH (08:50)
[2018-08-21] MEDS: GABAPENTIN 100 MG CAP PO SCH ×3 (10:00→20:42)
[2018-08-21] MEDS: ENOXAPARIN 30 MG/0.3 ML SQ SCH (17:22)
[2018-08-21] MEDS: ATORVASTATIN 40 MG TAB PO SCH (20:42)
[2018-08-21] MEDS ORDERED: INSULIN GLARGINE 100 UNITS/ML SQ SCH (21:00)
--- NOTE | 2018-08-21 21:32 | P.PN ---
Date of Service: 08/21/18 S: Patient no specific complaints, states it fits feels will better, he is happy that it is not as swollen. O: Vital signs remain stable, cell count back down below 10. Foot is less swollen. The area on the plantar surface of the right great toe appears to have demarcated. There is an area of obvious necrosis in the center part. It is surrounded by viable tissue. A: Responding to the antibiotics P: Patient is going to have an MRI in the morning. I will take him to the operating of his foot pending the results of the MRI, we will determine if the patient has osteomyelitis..
[2018-08-22] MEDS: PIPER/TAZO/NS 3.375gm 3.375 GM/100 ML BAG IVPB SCH ×3 (01:02→17:00)
[2018-08-22] MEDS: VANCOMYCIN 1.75 GM in NA CHLORIDE 0.9% 500 ML IVPB SCH (05:41)
[2018-08-22] MEDS: PANTOPRAZOLE 40MG TABLET PO SCH (05:41)
[2018-08-22 06:10] VITALS: BMI 26.9
[2018-08-22 06:14] LABS: Absolute Lymphocytes (CBC) 2.3 K/uL (0.7-4.9); Absolute Monocytes 0.6 K/uL (0.1-1.3); Absolute Neutrophil 6.8 K/uL (1.8-8.0); Basophils % 0.8 % (0-1.3); Eosinophils % 5.7 % (0-4.4); Hematocrit 31.5 % (39.6-49.0); MCH 32.5 pg (27.0-35.0); MCV 90.7 fL (80-100); Monocytes % 5.6 % (3.3-12.3); RBC Red Blood Cell Count 3.47 M/uL (4.33-5.43)
[2018-08-22 06:19] LABS: Magnesium 2.1 mg/dL (1.8-2.4); Potassium 3.8 mmol/L (3.5-5.1)
[2018-08-22] MEDS: CYANOCOBALAMIN 1,000 MCG TAB PO SCH (08:24)
[2018-08-22] MEDS: FERROUS SULFATE 325 MG TAB PO SCH (08:24)
[2018-08-22] MEDS: GABAPENTIN 100 MG CAP PO SCH ×2 (08:24→13:26)
[2018-08-22] MEDS: INSULIN -REGULAR HUMAN 50 UNIT/0.5 ML ML SQ SCH ×3 (08:30→16:30)
[2018-08-22] MEDS: METOPROLOL TAR 25 MG TAB PO SCH (08:31)
[2018-08-22] MEDS ORDERED: KCL 20 MEQ/100 mL IVPB 20 MEQ/100 ML BAG IV SCH (09:00)
--- NOTE | 2018-08-22 09:37 | P.PN ---
Subjective Date of Service: 08/22/18 Primary Care Provider: Keyur Bonilla NP Chief Complaint: Diabetic wound Subjective: Doing well Physical Examination - Vital Signs Temperature: 98.2 F Blood Pressure: 139/76 Pulse: 72 Respirations: 18 Pulse Ox (%): 96 - Physical Exam General: Alert, In no apparent distress, Oriented x3, Cooperative HEENT: Atraumatic Neck: Supple Respiratory: Clear to auscultation bilaterally, Normal air movement Cardiovascular: Normal pulses, Regular rate/rhythm Gastrointestinal: Normal bowel sounds, Soft and benign, Non-distended, No tenderness, No masses, No rebound, No guarding Musculoskeletal: No warmth Integumentary: Other (Right foot shows improvement with erythema. Erythema mainly to the right great toe.) Neurological: Normal speech, Normal strength at 5/5 x4 extr, Normal tone, Normal affect - Studies Medications List Reviewed: Yes Assessment & Plan Discharge Plan: Home Plan to discharge in: 24 Hours Physician Review Additional Text: Impression: Diabetic foot ulcer with necrotic changes with cellulitis to the right great toe and foot Diabetes mellitus type 2 uncontrolled, A1c 9.0 Acute on chronic renal disease with history of right nephrectomy due to polycystic kidney disease Hypertension Anemia with iron and B12 deficiency Tobacco abuse GERD Hyperlipidemia Plan: Diabetic foot ulcer with necrotic changes with cellulitis to the right great toe and foot: Continue with IV antibiotic therapy-vancomycin and Zosyn. Pharmacy to continue to adjust. Will have MRI done of foot to rule out osteomyelitis. Patient NPO for debridement by surgery today. If if MRI shows no osteomyelitis then debridement will continue. Possible discharge today if okay with surgery after debridement. Will discuss further with surgery. If MRI is positive for osteomyelitis then will need to consider PICC line and IV antibiotic therapy either in a home setting or long-term acute facility setting. This was discussed in detail with the patient. Diabetes mellitus type 2 uncontrolled: Will continue to increase Lantus for better diabetic control. Lantus up to 17 units daily. Will continue to monitor and adjust. A1c 9.0. Acute on chronic renal disease with history of right nephrectomy due to polycystic kidney disease: Continue with IV fluids. This has improved. Continue with nephrology. Hypertension: Will continue with blood pressure medication-metoprolol. Losartan currently on hold due to renal disease. Anemia with iron and B12 deficiency: Will continue with iron and B12 supplementation. Will monitor closely. Tobacco abuse: Will provide nicotine patch. Cessation education addressed. Hyperlipidemia: Will continue with medication. GERD: Will continue with medication Time Spent Managing Pts Care (In Minutes): 55
--- NOTE | 2018-08-22 11:14 | RAD REPORT ---
EXAM DESCRIPTION: MRI - Foot Right Wo Cont - 08/22/2018 10:41 am CLINICAL HISTORY: evaluate for osteomyelitis(right great toe) COMPARISON: Foot Right 3 View dated 08/18/2018 FINDINGS: Moderate soft tissue swelling subcutaneous edema is seen involving the great toe. Soft tis enrrique gas is also suspected with thin the plantar soft tissues of the great toe laterally. The underlyi ng marrow pattern of the great toe on T1 weighted sequences is preserved. This could indicate that os teomyelitis is not currently present. No drainable fluid collection is identified. There is mild subluxation at the interphalangeal joint of the great toe noted. IMPRESSION: Evidence of a significant great toe gas-forming infection is present without evidence of osteomyelitis this time.
[2018-08-22] MEDS ORDERED: PROPOFOL 200 MG/20 ML VIAL IV ONE (13:37)
[2018-08-22] MEDS ORDERED: MIDAZOLAM HCL 2 MG/2 ML INJ ONE (13:37)
[2018-08-22] MEDS ORDERED: LIDOCAINE 2% MPF 5 ML VIAL ONE (13:37)
[2018-08-22] MEDS: BUPIVACAINE 0.5% PF 10 ML VIAL ONE ×2 (13:46→14:21)
[2018-08-22] MEDS ORDERED: NA CHLORIDE 0.9% 1,000 ML ONE (14:00)
[2018-08-22] MEDS ORDERED: FENTANYL CITR 100 MCG/2 ML ONE (14:26)
--- NOTE | 2018-08-22 15:06 | P.OP ---
Adult And Pediatric Neurologist: Preoperative diagnosis: Infected right great toe Postoperative diagnosis: The same Primary procedure: Exploration Secondary procedure: Sharp Surgical debridement Anesthesia: General Estimated blood loss: Less than 10 cc Specimen: Necrotic debris identified (not sent Close Operative Technique: The patient brought the operating room placed supine on the table. After the induction of adequate general anesthesia, the area of the right foot was now prepped with a iodoform solution, draped in usual aseptic manner. Attention was turned towards the pad of the great toe. There was a necrotic area measuring approximately 1.5 cm. On a sharply debrided us with a cutting surgical 11 blade. We carried this down and found that there was a area of necrosis with necrotic debris and some fluid in the subcutaneous tissue. This went all way down to the actual bony itself. The area around this was now sharply debrided leaving a open wound of measuring approximately 1.5 cm and length 1.7 cm in width and 1.2 cm in depth. The remaining tissue, is marginally viable. At this point a 4 x 4 was placed into the wound to keep it open plan continue with surgical debridement it during the postoperative period with dressing changes. A sterile dressing was then applied At the end of procedure he was in a stable condition when sent to the recovery room. Needle sponge instrument count were correct. Complications: None Transferred to: Recovery Room Condition: Good
[2018-08-22 15:21] VITALS: O2SAT 96
[2018-08-22] MEDS: ENOXAPARIN 30 MG/0.3 ML SQ SCH (16:50)
[2018-08-22 17:30] VITALS: BP 173/81; TEMP 97.2
--- NOTE | 2018-08-22 17:30 | P.DS ---
Admission Date: 08/18/18 Discharge Date: 08/22/18 Primary Care Provider: Keyur Bonilla NP Disposition: ROUTINE DISCHARGE Discharge Condition: GOOD Reason for Admission: Diabetic wound Consultations: Surgery: Dr. Vega Nephrology-Dr. Tompkins Procedures: MRI: COMPARISON: Foot Right 3 View dated 08/18/2018 FINDINGS: Moderate soft tissue swelling subcutaneous edema is seen involving the great toe. Soft tissue gas is also suspected with thin the plantar soft tissues of the great toe laterally. The underlying marrow pattern of the great toe on T1 weighted sequences is preserved. This could indicate that osteomyelitis is not currently present. No drainable fluid collection is identified. There is mild subluxation at the interphalangeal joint of the great toe noted. IMPRESSION: Evidence of a significant great toe gas-forming infection is present without evidence of osteomyelitis this time. Surgery: Sharp surgical debridement done Medical Problem List: Diabetic foot ulcer with necrotic changes with cellulitis to the right great toe and foot status post sharp surgical debridement Diabetes mellitus type 2 uncontrolled, A1c 9.0 Acute on chronic renal disease with history of right nephrectomy due to polycystic kidney disease Hypertension Anemia with iron and B12 deficiency Tobacco abuse GERD Hyperlipidemia Brief History of Present Illness: 43-year-old male presented emergency room with ulcer and cellulitis to the right great toe. Patient admitted for treatment Hospital Course: Patient admitted for diabetic foot ulcer to the right great toe with necrotic changes and cellulitis to the right foot. Patient was admitted and given IV antibiotic treatment. Vancomycin and Zosyn was initiated. Patient evaluated by surgery. MRI showed no osteomyelitis. Surgery was performed including sharp debridement. Patient tolerated procedure well. At discharge patient will continue with wound care as per surgery. Patient will continue with Levaquin 250 mg daily for 7 days. Recommendation is for the patient to follow up with surgery within 1 week or at the wound Care Center with surgery to further monitor and address. Neurontin 100 mg 1 pill 3 times a day as needed for pain will be provided. Patient has diabetes. A1c 9.0. Patient started on basal insulin. At discharge patient will continue with Lantus 15 units subcu daily. Recommendation is to maintain blood sugars less 140 fasting and less than 200 after meals. Further adjustment can be done by his PCP. Patient presented with acute on chronic renal disease. Patient with history of right nephrectomy due to polycystic kidney disease. Patient seen and evaluated by nephrology. At discharge patient will continue with nephrology as an outpatient. Recommendation on no further use of nonsteroidal anti- inflammatories. Future medications will need to be renally dosed. Recommendation to recheck lab-BMP in 1 week to monitor his progress. Patient has hypertension. Patient will continue with metoprolol 25 mg 1 pill twice daily. Losartan has been discontinued. Recommendation is to maintain blood pressures less 150/80. Further adjustment can be done by his PCP. Patient has anemia secondary to iron and B12 deficiency. Patient will continue with iron and B12 supplementation. Recommendation to recheck CBC in 1-2 weeks to monitor his progress. Tobacco cessation education will be provided. Patient has hyperlipidemia. Patient will continue with medication-Zocor 80 mg daily. Patient has GERD. Patient will continue with Protonix 40 mg 1 pill once daily. Vital Signs/Physical Exam: Temp Pulse Resp BP Pulse Ox 98.2 F 75 16 126/79 99 08/22/18 15:08 08/22/18 15:08 08/22/18 15:08 08/22/18 15:08 08/22/18 12:00 General: Alert, In no apparent distress, Oriented x3, Cooperative HEENT: Atraumatic Neck: Supple Respiratory: Clear to auscultation bilaterally, Normal air movement Cardiovascular: Normal pulses, Regular rate/rhythm Gastrointestinal: Normal bowel sounds, Soft and benign, Non-distended, No ascites, No tenderness, No masses, No rebound, No guarding Musculoskeletal: No tenderness, No warmth Neurological: Normal speech, Normal strength at 5/5 x4 extr, Normal tone, Normal affect Laboratory Data at Discharge: WBC 10.3 K/uL (4.3-10.9) 08/22/18 05:02 Hgb 11.3 g/dL (13.6-17.9) L 08/22/18 05:02 Hct 31.5 % (39.6-49.0) L 08/22/18 05:02 Plt Count 265 K/uL (152-406) D 08/22/18 05:02 PT 13.1 SECONDS (9.5-12.5) H 08/18/18 22:39 INR 1.11 08/18/18 22:39 Sodium 141 mmol/L (136-145) 08/22/18 05:02 Potassium 3.8 mmol/L (3.5-5.1) 08/22/18 05:02 BUN 19 mg/dL (7-18) H 08/22/18 05:02 Creatinine 2.00 mg/dL (0.55-1.3) H 08/22/18 05:02 Glucose 351 mg/dL (74-106) H 08/22/18 05:02 Uric Acid 5.2 mg/dL (3.5-7.2) 08/21/18 04:15 Magnesium 2.1 mg/dL (1.8-2.4) 08/22/18 05:02 Total Bilirubin 0.9 mg/dL (0.2-1.0) 08/18/18 22:39 AST 15 U/L (15-37) 08/18/18 22:39 ALT 17 U/L (12-78) 08/18/18 22:39 Alkaline Phosphatase 110 U/L (45-117) 08/18/18 22:39 Home Medications: Metoprolol Tartrate 25 mg PO BID 08/19/18 Simvastatin 80 mg PO BEDTIME 08/19/18 Aspirin [Aspirin EC 81 MG] 81 mg PO DAILY #90 tablet. 08/22/18 Cyanocobalamin (Vitamin B-12) [Vitamin B-12] 1,000 mcg PO DAILY #90 capsule 07/02 Ferrous Sulfate [Ferrous Sulfate*] 325 mg PO DAILY #30 tab 08/22/18 Gabapentin [Neurontin*] 100 mg PO TID PRN #30 cap 08/22/18 Insulin Glargine,Hum.rec.anlog [Lantus Solostar] 15 unit SQ DAILY #1 robert Levofloxacin [Levaquin] 250 mg PO DAILY #7 tablet 08/22/18 Pantoprazole [Protonix Tab*] 40 mg PO DAILYAC #30 tab 08/22/18 New Medications: Aspirin [Aspirin EC 81 MG] 81 mg PO DAILY #90 tablet. Cyanocobalamin (Vitamin B-12) [Vitamin B-12] 1,000 mcg PO DAILY #90 capsule Ferrous Sulfate [Ferrous Sulfate*] 325 mg PO DAILY #30 tab Gabapentin [Neurontin*] 100 mg PO TID PRN #30 cap PRN Reason: Pain Insulin Glargine,Hum.rec.anlog [Lantus Solostar] 15 unit SQ DAILY #1 robert Levofloxacin [Levaquin] 250 mg PO DAILY #7 tablet Pantoprazole [Protonix Tab*] 40 mg PO DAILYAC #30 tab Patient Discharge Instructions: 1. Patient will need a follow up with his PCP in 1 week to follow up this hospitalization. 2. Patient admitted for diabetic foot ulcer to the right great toe with necrotic changes and cellulitis to the right foot. Patient was admitted and given IV antibiotic treatment. Vancomycin and Zosyn was initiated. Patient evaluated by surgery. MRI showed no osteomyelitis. Surgery was performed including sharp debridement. Patient tolerated procedure well. At discharge patient will continue with wound care as per surgery. Patient will continue with Levaquin 250 mg daily for 7 days. Recommendation is for the patient to follow up with surgery within 1 week or at the wound Care Center with surgery to further monitor and address. Neurontin 100 mg 1 pill 3 times a day as needed for pain will be provided. 3. Patient has diabetes. A1c 9.0. Patient started on basal insulin. At discharge patient will continue with Lantus 15 units subcu daily. Recommendation is to maintain blood sugars less 140 fasting and less than 200 after meals. Further adjustment can be done by his PCP. 4. Patient presented with acute on chronic renal disease. Patient with history of right nephrectomy due to polycystic kidney disease. Patient seen and evaluated by nephrology. At discharge patient will continue with nephrology as an outpatient. Recommendation on no further use of nonsteroidal anti-inflammatories. Future medications will need to be renally dosed. Recommendation to recheck lab-BMP in 1 week to monitor his progress. 5. Patient has hypertension. Patient will continue with metoprolol 25 mg 1 pill twice daily. Losartan has been discontinued. Recommendation is to maintain blood pressures less 150/80. Further adjustment can be done by his PCP. 6. Patient has anemia secondary to iron and B12 deficiency. Patient will continue with iron and B12 supplementation. Recommendation to recheck CBC in 1-2 weeks to monitor his progress. 7. Tobacco cessation education will be provided. 8. Patient has hyperlipidemia. Patient will continue with medication-Zocor 80 mg daily. 9. Patient has GERD. Patient will continue with Protonix 40 mg 1 pill once daily. Diet: ADA Activity: Ad vee Time spent managing pt's care (in minutes): 55
--- NOTE | 2018-08-22 20:40 | P.PN ---
Date of Service: 08/22/18 Vital Signs Temp Pulse Resp BP Pulse Ox 97.2 F 60 18 173/81 H 97 08/22/18 16:00 08/22/18 16:00 08/22/18 16:00 08/22/18 16:00 08/22/18 16:00 Microbiology Results 08/18/18 22:39 Blood - Blood Aerobic Blood Culture - Preliminary No growth in 24 hours. 08/18/18 22:39 Blood - Blood Anaerobic Blood Culture - Preliminary No growth in 24 hours. 08/18/18 23:05 Blood - Blood Aerobic Blood Culture - Preliminary No growth in 24 hours. 08/18/18 23:05 Blood - Blood Anaerobic Blood Culture - Preliminary No growth in 24 hours. Assessment/ Plan: Nephrology. Seen and examined in post-op. CPS stable without CP or SOB. No acute events overnight. Vitals, medications, blood work and imaging reviewed in the chart. General: Alert, Oriented x3, Cooperative HEENT: Atraumatic Neck: Supple Respiratory: Clear to auscultation bilaterally Cardiovascular: No edema, Regular rate/rhythm Gastrointestinal: Hypoactive, Soft and benign Musculoskeletal: No clubbing, No contractures Integumentary: No rashes, No cyanosis, Skin breakdown, Tenderness/swelling, Erythema Neurological: Normal speech Creatinine 2.8 at admission. Blood work reviewed in the chart. Imagings Data: EXAM DESCRIPTION: Gaetano Single View08/18/2018 11:27 pm CLINICAL HISTORY: Cough COMPARISON: none FINDINGS: The lungs appear clear of acute infiltrate. The heart is normal size IMPRESSION: No acute abnormalities displayed Conclusions/Impression: A/ SELAM likely due to hypovolemia. CKD IV with proteinuria. Right nephrectomy. Hyponatremia. DM II with CKD. HTN with CKD. Iron Deficiency Anemia. B12 Deficiency. Hypocalcemia. P/ Continue current POC and medications. Abx as ordered. Wound care as ordered. No NSAIDs. AM labs. Daily weight.
== END 2018-08-22 18:32 | disposition home or self-care (01) | DRG 623 ==
LOC: ER 22:08 → ERHOLD 23:30 → 2ND 08-19 01:42
PROVIDERS: ADMIT Internal Medicine; ATTEND Family Medicine
PROC: 0JBQ0ZZ Excision of Right Foot Subcutaneous Tissue and Fascia, Open Approach (ICD-10-PCS; principal; 2018-08-22 13:15)
DX: E11.621 Type 2 diabetes mellitus with foot ulcer (principal); E87.1 Hypo-osmolality and hyponatremia; L97.513 Non-pressure chronic ulcer of other part of right foot with necrosis of muscle; E11.65 Type 2 diabetes mellitus with hyperglycemia; E11.628 Type 2 diabetes mellitus with other skin complications; L03.031 Cellulitis of right toe; Z79.4 Long term (current) use of insulin; D50.9 Iron deficiency anemia, unspecified; D51.3 Other dietary vitamin B12 deficiency anemia; F17.210 Nicotine dependence, cigarettes, uncomplicated; K21.9 Gastro-esophageal reflux disease without esophagitis; E78.5 Hyperlipidemia, unspecified; Z90.5 Acquired absence of kidney; I12.9 Hypertensive chronic kidney disease with stage 1 through stage 4 chronic kidney disease, or unspecified chronic kidney disease; E11.22 Type 2 diabetes mellitus with diabetic chronic kidney disease; N18.4 Chronic kidney disease, stage 4 (severe); N17.8 Other acute kidney failure; E83.51 Hypocalcemia
CPT/HCPCS: 36415; 71045; 80048; 80076; 80202; 81001; 82043; 82570; 82607; 82728; 82962; 83036; 83540; 83605; 83735; 83880; 84145; 84300; 84466; 84484; 84550; 85025; 85610; 85652; 87040; 87070; 87205; 93005; 96372; 99285; J1650; J2250; J2405; J2543; J3010; J3370; J7030